=== PATIENT | female | born 1945 | race Two or more races ===

== ENCOUNTER 2020-06-10 12:39 | Outpatient (CLI) | payer OTHER | END 2020-06-10 15:42 | disposition home or self-care (01) | LOC: RAD 12:39 | DX: G89.11 Acute pain due to trauma (principal) ==

== ENCOUNTER 2020-08-10 10:11 | Outpatient (CLI) | payer OTHER | END 2020-08-10 10:40 | disposition home or self-care (01) | LOC: MAMO-SONO 10:11 | PROVIDERS: ATTEND Specialist | DX: Z12.31 Encounter for screening mammogram for malignant neoplasm of breast (principal); Z87.898 Personal history of other specified conditions; N60.12 Diffuse cystic mastopathy of left breast; I10 Essential (primary) hypertension; J45.998 Other asthma ==

== ENCOUNTER 2020-08-10 12:42 | Outpatient (CLI) | payer OTHER | END 2020-08-10 12:44 | disposition home or self-care (01) | LOC: NUCLEAR 12:42 | PROVIDERS: ATTEND Specialist | DX: M81.0 Age-related osteoporosis without current pathological fracture (principal) ==

== ENCOUNTER 2021-05-25 11:51 | Outpatient (CLI) | payer OTHER | END 2021-05-25 12:00 | disposition home or self-care (01) | LOC: MAMO-SONO 11:51 | PROVIDERS: ATTEND Specialist | DX: Z12.31 Encounter for screening mammogram for malignant neoplasm of breast (principal); N60.39 Fibrosclerosis of unspecified breast; N60.29 Fibroadenosis of unspecified breast ==

== ENCOUNTER 2022-06-05 10:57 | Outpatient (CLI) | payer OTHER | END 2022-06-05 11:09 | disposition home or self-care (01) | LOC: RAD 10:57 | PROVIDERS: ATTEND Specialist | DX: J45.991 Cough variant asthma (principal); Z12.39 Encounter for other screening for malignant neoplasm of breast; N60.39 Fibrosclerosis of unspecified breast ==

== ENCOUNTER 2023-03-05 13:46 | Outpatient (CLI) | payer OTHER | END 2023-03-05 13:56 | disposition home or self-care (01) | LOC: MRI 13:46 | PROVIDERS: ATTEND Orthopaedic Surgery | DX: S83.201A Bucket-handle tear of unspecified meniscus, current injury, left knee, initial encounter (principal) | CPT/HCPCS: 73718 ==